=== PATIENT | female | born 1950 | race Two or more races ===

== ENCOUNTER 2019-09-15 14:22 | Inpatient (IN) | payer OTHER ==
[~2019-09-15] VITALS: Ht 157.5 cm; Wt 60.0 kg
--- NOTE | 2019-09-15 14:44 | NUR ---
PT CAME IN CO OF "FEELING WEAK, BODY ACHES AND SOB" X 1 WEEK. PT FOUND TO BE HYPOXIC IN TRIAGE AND WAS PLACED ON 2 LITERS VIA NC. PT DENIES USING HOME O2. PT IS RESTING IN RNEY CONNECTED TO MONITORING EQUIPMENT.
[2019-09-15] MEDS ORDERED: ANAS1TAB49 PO (15:05)
--- NOTE | 2019-09-15 15:07 | NUR ---
PATIENT RESTING IN BED, VITAL SIGNS WITHIN NORMAL LIMITS. PATIENTS O2 SATURATION 95% ON 3 LPM NC. NO FURTHER NEEDS AT THIS TIME.
[2019-09-15 15:32] LABS: BASOPHILS # (AUTO) 0.02 x10^3/uL (0-0.1); BASOPHILS % (AUTO) 0 % (0-1); EOSINOPHILS # (AUTO) 0.01 x10^3/uL (0-0.4); EOSINOPHILS % (AUTO) 0 % (1-7); LYMPHOCYTES # (AUTO) 0.63 x10^3/uL (1-3.4); LYMPHOCYTES % (AUTO) 6 % (22-44); MD NO; MEAN CORPUSCULAR HEMOGLOBIN 29.9 pg (27.0-34.8); MEAN CORPUSCULAR HGB CONC 33.1 g/dL (32.4-35.8); MEAN CORPUSCULAR VOLUME 90.3 fL (80-100); MEAN PLATELET VOLUME 7.5 fL (7.4-10.4); MONOCYTES # (AUTO) 0.47 x10^3/uL (0.2-0.8); MONOCYTES % (AUTO) 5 % (2-9); NEUTROPHILS # (AUTO) 9.02 x10^3/uL (1.8-6.8); NEUTROPHILS % (AUTO) 89 % (42-75); PLATELET COUNT 249 x10^3/uL (130-400); RED BLOOD COUNT 5.09 x10^6/uL (3.82-5.3)
[2019-09-15 15:38] LABS: ALANINE AMINOTRANSFERASE 59 U/L (12-78); ALBUMIN 2.5 g/dL (3.4-5.0); ANION GAP 8 mmol/L (5-15); CALCIUM 8.9 mg/dL (8.5-10.1); CHLORIDE 107 mmol/L (98-107); CREATININE 0.81 mg/dL (0.55-1.02)
[2019-09-15 15:40] LABS: ALKALINE PHOSPHATASE 72 U/L (45-117); BILIRUBIN,TOTAL 0.9 mg/dL (0.2-1.0); TOTAL PROTEIN 7.8 g/dL (6.4-8.2); TROPONIN I < 0.015 ng/mL (0.000-0.045)
[2019-09-15] MEDS ORDERED: CEFTRIAXONE PMX 1GM/50ML 50 ML ONE (15:56)
[2019-09-15] MEDS ORDERED: AZITHROMYCIN 500 MG in SODIUM CHLORIDE 0.9% 250 ML IV ONE (16:00)
[2019-09-15] MEDS ORDERED: CEFTRIAXONE PMX 1GM/50ML 50 ML IVPB ONE (16:00)
--- NOTE | 2019-09-15 16:08 | NUR ---
Patient is resting comfortably in bed, 20 GAUGE IV STARTED IN RFA, AND ROCEPHIN HUNG. Vital Signs within normal limits. NO FURTHER NEEDS AT THIS TIME.
[2019-09-15 16:31] LABS: D-DIMER (DIC) 1.17 ug/mlFEU (0.00-0.52); PROTIME 10.4 Seconds (9.6-11.5)
--- NOTE | 2019-09-15 17:33 | NUR ---
Patient resting in bed, IV zithromax finishing up. No c/o pain, no further needs at this time.
[2019-09-15] MEDS ORDERED: POLYETHYLENE GLYCOL 17 GM PACKET PO PRN (18:00)
[2019-09-15] MEDS ORDERED: ENOXAPARIN 40 MG/0.4 ML SQ SCH (18:00)
[2019-09-15] MEDS ORDERED: MELATONIN 5 MG TABLET PO PRN (18:00)
[2019-09-15] MEDS ORDERED: HYDROcodone/APAP 5/325 TABLET PO PRN (18:00)
[2019-09-15] MEDS ORDERED: AZITHROMYCIN 500 MG in SODIUM CHLORIDE 0.9% 250 ML IV SCH (18:00)
[2019-09-15] MEDS ORDERED: PROMETHAZINE 25 MG/ML, 1ML IM PRN (18:00)
[2019-09-15] MEDS ORDERED: BISACODYL 10 MG SUPP PR PRN (18:00)
[2019-09-15] MEDS ORDERED: ACETAMINOPHEN 325 MG TABLET PO PRN (18:00)
[2019-09-15] MEDS ORDERED: DIPHENHYDRAMINE 25 MG CAPSULE PO PRN (18:00)
[2019-09-15] MEDS ORDERED: SODIUM CHLORIDE 0.9%, 500ML IVBOLUS ONE (18:00)
[2019-09-15] MEDS ORDERED: GUAIFENESIN/COD200MG-20MG/10ML LIQUID PO PRN (18:00)
[2019-09-15] MEDS ORDERED: ONDANSETRON 2MG/ML, 2ML IVPush PRN (18:00)
--- NOTE | 2019-09-15 18:24 | NUR ---
NS 500ML BOLUS STARTED. DINNER TRAY ORDERED FOR PATIENT.
--- NOTE | 2019-09-15 18:25 | NUR ---
sister [phone] Noemi Mujica
--- NOTE | 2019-09-15 19:00 | NUR ---
REPORT RECEIVED FROM KENTON MADDEN
--- NOTE | 2019-09-15 20:00 | NUR ---
PATIENT NEEDED TO USE RESTROOM. PATIENT GIVEN BEDSIDE COMMODE. PATIENT TOLERATED WELL. ABLE TO AMBULATE WITHOUT COMPLICATIONS. ABELINO IS CURRENTLY EATING DINNER, TOLERATING WELL. VITAL SIGNS REMAIN STABLE. CALL LIGHT WITHIN REACH, BED IN LOWEST LOCKED POSITION. WILL CONTINUE TO MONITOR.
[2019-09-15] MEDS ORDERED: THIAMINE 100MG TABLET PO ONE (21:00)
[2019-09-15] MEDS: ASCORBIC ACID 500 MG TABLET PO SCH (21:00)
--- NOTE | 2019-09-15 21:00 | NUR ---
CALLED PHARMACY REGARDING LOVENOX INJECTION THAT WAS MISSED, TO CLARIFY PROPER DOSAGES. WILL ADMINISTER 60MG/0.6ML SUBQ PER PHARMACY
[2019-09-15] MEDS ORDERED: ENOXAPARIN 60 MG/0.6 ML ONE (21:15)
[2019-09-15] MEDS ORDERED: THIAMINE 100MG TABLET ONE (21:29)
[2019-09-15] MEDS: ENOXAPARIN 60 MG/0.6 ML SQ SCH (21:30)
--- NOTE | 2019-09-15 21:35 | NUR ---
Assist RN: Hospital bed ordered.
[2019-09-15 22:55] VITALS: BP 131/78
[2019-09-16 01:14] VITALS: BP 136/82
[2019-09-16 06:28] LABS: MEAN CORPUSCULAR HEMOGLOBIN 30.2 pg (27.0-34.8); MEAN CORPUSCULAR HGB CONC 33.2 g/dL (32.4-35.8); MEAN CORPUSCULAR VOLUME 91.1 fL (80-100); MEAN PLATELET VOLUME 8.2 fL (7.4-10.4); PLATELET COUNT 235 x10^3/uL (130-400); RED BLOOD COUNT 4.67 x10^6/uL (3.82-5.3); RED CELL DISTRIBUTION WIDTH 12.8 % (9.6-15.2)
[2019-09-16 06:29] LABS: HCT (SEDRATE) 42.2 % (34.6-47.8)
[2019-09-16 06:30] LABS: ANION GAP 8 mmol/L (5-15); CALCIUM 7.8 mg/dL (8.5-10.1); CHLORIDE 109 mmol/L (98-107)
[2019-09-16 06:42] LABS: CREATININE 0.64 mg/dL (0.55-1.02)
[2019-09-16 06:59] LABS: BASOPHILS # (AUTO) 0.01 x10^3/uL (0-0.1); BASOPHILS % (AUTO) 0 % (0-1); EOSINOPHILS # (AUTO) 0.03 x10^3/uL (0-0.4); EOSINOPHILS % (AUTO) 0 % (1-7); LYMPHOCYTES # (AUTO) 0.93 x10^3/uL (1-3.4); LYMPHOCYTES % (AUTO) 12 % (22-44); MD SCAN; MONOCYTES # (AUTO) 0.64 x10^3/uL (0.2-0.8); MONOCYTES % (AUTO) 8 % (2-9); NEUTROPHILS # (AUTO) 6.05 x10^3/uL (1.8-6.8); NEUTROPHILS % (AUTO) 79 % (42-75)
[2019-09-16] MEDS ORDERED: CHOLECALCIFEROL 5,000u TAB PO SCH (09:00)
[2019-09-16] MEDS ORDERED: ANASTROZOLE 1 MG TABLET PO SCH (09:00)
[2019-09-16] MEDS ORDERED: DEXAMETHASONE 4 MG/ML, 1ML IVPush SCH (09:00)
[2019-09-16] MEDS ORDERED: ZINC SULFATE 220 MG CAPSULE PO SCH (09:00)
[2019-09-16] MEDS ORDERED: SENNA/DOCUSATE TABLET PO SCH (09:00)
[2019-09-16 09:47] VITALS: BP 100/65
[2019-09-16] MEDS: ASCORBIC ACID 500 MG TABLET PO SCH ×2 (09:55→20:55)
[2019-09-16] MEDS: ENOXAPARIN 60 MG/0.6 ML SQ SCH ×2 (09:57→20:55)
[2019-09-16 13:45] VITALS: BP 117/75
[2019-09-16] MEDS ORDERED: AZITHROMYCIN 500 MG in SODIUM CHLORIDE 0.9% 250 ML IV SCH (16:00)
[2019-09-16] MEDS ORDERED: ZINC220C7 PO (17:07)
[2019-09-16] MEDS ORDERED: ASCO500T9 PO (17:07)
[2019-09-16] MEDS ORDERED: VIT1TABL67 PO (17:07)
[2019-09-16] MEDS ORDERED: AZIT250T PO (17:07)
[2019-09-16] MEDS ORDERED: MELA5TAB14 PO (17:07)
[2019-09-16] MEDS ORDERED: CEFD300C37 PO (17:07)
[2019-09-16 18:47] VITALS: BP 153/83
== END 2019-09-16 21:50 | disposition home or self-care (01) | DRG 177 ==
LOC: ED 17:20 → EDIP 17:24 → OBSVTOIN 17:24 → INTOOBSV 17:24 → 4NW 22:43
PROVIDERS: ADMIT Hospitalist; ATTEND Family Medicine
DX: U07.1 COVID-19 (principal); J12.89 Other viral pneumonia; J96.01 Acute respiratory failure with hypoxia; E44.0 Moderate protein-calorie malnutrition; Z68.24 Body mass index [BMI] 24.0-24.9, adult; Z85.3 Personal history of malignant neoplasm of breast
CPT/HCPCS: 36415; 71045; 80048; 80053; 82728; 83605; 83615; 84145; 84484; 85025; 85049; 85379; 85384; 85610; 85651; 85730; 86140; 87040; 87635; 93005; G0378; J0456; J0696; J1100; J1650; J7040; J7050